=== PATIENT | male | born 1960 | race Caucasian/White ===

== ENCOUNTER → 2016-09-08 | Outpatient (CLI) | payer BC ==
--- NOTE | 2016-09-08 17:09 | XR ---
Left shoulder HISTORY: Left shoulder pain 3 views of the left shoulder No comparisons Bone mineralization, joint spaces and alignment are maintained. Left lung apex as visualized is edgardo l. Acromioclavicular joint arthropathy is noted. IMPRESSION: Acromioclavicular joint arthropathy, consider shoulder MRI.
== END | disposition home or self-care (01) ==
LOC: RADXRMAIN 15:30
PROVIDERS: ATTEND Physician Assistant
DX: M12.812 Other specific arthropathies, not elsewhere classified, left shoulder (principal)

== ENCOUNTER 2017-11-01 10:26 | Emergency (ER) | payer BC ==
[2017-11-01 10:45] VITALS: PULSE 89; RESP 18; TEMP 98.8
[2017-11-01] MEDS ORDERED: APIXABAN 5 MG TAB PO STA (11:28)
--- NOTE | 2017-11-01 11:36 | ED ---
General Adult HPI - General Chief complaint: Extremity Injury, Lower Stated complaint: DVT sent over from US Time Seen by Provider: 11/01/17 11:00 Source: patient, RN notes reviewed, old records reviewed Mode of arrival: ambulatory Limitations: no limitations - History of Present Illness Initial comments: This 37-year-old male the ER for evaluation. Patient states he has regular every pain. Respiratory tenderness and swelling. He for cirrhosis lung lugo days ago. By family doctor for outpatient ultrasound. Patient states he was referred to our care in emergency room from outpatient ultrasound she denies injury, no travel history, no recent surgeries - Related Data Home Medications Medication Instructions Recorded Confirmed Wylie 1 tab PO DAILY 11/01/17 11/01/17 Cinnamon Bark [Cinnamon] 500 mg PO DAILY 11/01/17 11/01/17 Curcumin 1 tab PO DAILY 11/01/17 11/01/17 Garcinia Cambogia 1 tab PO DAILY 11/01/17 11/01/17 Thistle [place] 1 tab PO DAILY 11/01/17 11/01/17 Thyroid,Pork [[place] Thyroid] 90 mg PO DAILY 11/01/17 11/01/17 Previous Rx's Medication Instructions Recorded Apixaban [Eliquis] 5 mg PO BID #60 tablet 11/01/17 Apixaban [Eliquis] 10 mg PO BID #28 tab 11/01/17 Allergies Allergy/AdvReac Type Severity Reaction Status Date / Time No Known Allergies Allergy Verified 11/01/17 11:24 Review of Systems ROS Statement: Those systems with pertinent positive or pertinent negative responses have been documented in the HPI. ROS Other: All systems not noted in ROS Statement are negative. Past Medical History Past Medical History: Thyroid Disorder History of Any Multi-Drug Resistant Organisms: None Reported Past Surgical History: Orthopedic Surgery Additional Past Surgical History / Comment(s): Sinus surgery Past Psychological History: No Psychological Hx Reported Smoking Status: Current every day smoker Past Alcohol Use History: Occasional Past Drug Use History: None Reported General Exam Limitations: no limitations General appearance: alert, in no apparent distress Head exam: Present: atraumatic, normocephalic, normal inspection Eye exam: Present: normal appearance, PERRL, EOMI. Absent: scleral icterus, conjunctival injection, periorbital swelling ENT exam: Present: normal exam, mucous membranes moist Neck exam: Present: normal inspection. Absent: tenderness, meningismus, lymphadenopathy Respiratory exam: Present: normal lung sounds bilaterally. Absent: respiratory distress, wheezes, rales, rhonchi, stridor Cardiovascular Exam: Present: regular rate, normal rhythm, normal heart sounds. Absent: systolic murmur, diastolic murmur, rubs, gallop, clicks GI/Abdominal exam: Present: soft, normal bowel sounds. Absent: distended, tenderness, guarding, rebound, rigid Extremities exam: Present: normal inspection, full ROM, normal capillary refill , other (Right lower extremity tenderness). Absent: tenderness, pedal edema, joint swelling, calf tenderness Back exam: Present: normal inspection Neurological exam: Present: alert, oriented X3, CN II-XII intact Psychiatric exam: Present: normal affect, normal mood Skin exam: Present: warm, dry, intact, normal color. Absent: rash Course Vital Signs 11/01/17 10:41 Temperature 98.8 F Pulse Rate 89 Respiratory 18 Rate Blood Pressure 167/100 O2 Sat by Pulse 99 Oximetry Medical Decision Making - Medical Decision Making 3 formality ER for evaluation of right lower Shorty pain, positive DVT on ultrasound. Patient will be anticoagulated discharged home - Radiology Data Radiology results: report reviewed (outpatient ultrasound positive DVT) Disposition Clinical Impression: Right leg DVT Disposition: HOME SELF-CARE Condition: Good Instructions: Deep Venous Thrombosis (ED) Prescriptions: Apixaban [Eliquis] 10 mg PO BID #28 tab Apixaban [Eliquis] 5 mg PO BID #60 tablet Referrals: Shailesh Marroquin MD [Primary Care Provider] - 1-2 days
[2017-11-01 12:01] VITALS: BP 145/101
== END 2017-11-01 12:03 | disposition home or self-care (01) ==
LOC: EC 10:26
DX: I82.401 Acute embolism and thrombosis of unspecified deep veins of right lower extremity (principal); E03.9 Hypothyroidism, unspecified; F17.200 Nicotine dependence, unspecified, uncomplicated; Z79.899 Other long term (current) drug therapy
CPT/HCPCS: 99283

== ENCOUNTER → 2017-11-01 | Outpatient (CLI) | payer BC ==
--- NOTE | 2017-11-01 10:33 | US ---
EXAMINATION TYPE: US venous doppler duplex LE RT DATE OF EXAM: 11/01/2017 10:20 AM COMPARISON: NONE CLINICAL HISTORY: R60.0 Edema lower extremity right. SIDE PERFORMED: Right TECHNIQUE: The lower extremity deep venous system is examined utilizing real time linear array sonog gabriel with graded compression, doppler sonography and color-flow sonography. VESSELS IMAGED: External Iliac Vein (EIV) Common Femoral Vein Deep Femoral Vein Greater Saphenous Vein * Femoral Vein Popliteal Vein Small Saphenous Vein * Proximal Calf Veins (* superficial vessels) Right Leg: ++Positive for DVT from the upper femoral leg to the proximal calf veins. IMPRESSION: Occlusive acute right lower extremity deep venous thrombosis from the upper femoral vein extending into the proximal calf veins. Preliminary results called to Calli at office at time of e xam by the etl application developer. Patient taken to the emergency room at the office's request.
== END | disposition home or self-care (01) ==
LOC: RADUSWWP 09:29
PROVIDERS: ATTEND Family Medicine
DX: I82.411 Acute embolism and thrombosis of right femoral vein (principal)

== ENCOUNTER → 2018-04-29 | Outpatient (CLI) | payer BC ==
--- NOTE | 2018-04-29 11:38 | US ---
EXAMINATION TYPE: US venous doppler duplex LE RT DATE OF EXAM: 04/29/2018 7:26 AM COMPARISON: CLINICAL HISTORY: I82.401 ACUTE EMBOLISM AND THROMBOSIS. Hx of DVT in October. Still on blood thinners . No pain, swelling or redness. SIDE PERFORMED: Right TECHNIQUE: The lower extremity deep venous system is examined utilizing real time linear array sonog gabriel with graded compression, doppler sonography and color-flow sonography. VESSELS IMAGED: External Iliac Vein (EIV) Common Femoral Vein Deep Femoral Vein Greater Saphenous Vein * Femoral Vein Popliteal Vein Small Saphenous Vein * Proximal Calf Veins (* superficial vessels) Right Leg: Negative for DVT IMPRESSION: 1. Right lower extremity ultrasound negative for deep venous thrombosis.
== END | disposition home or self-care (01) ==
LOC: RADUSWWP 06:49
PROVIDERS: ATTEND Family Medicine
DX: I82.401 Acute embolism and thrombosis of unspecified deep veins of right lower extremity (principal)

== ENCOUNTER 2018-08-03 09:58 | Day surgery (SDC) | payer BC ==
[~2018-08-03 09:58] MED LIST: DEXAMETHASONE SOD PHOSPHATE 10 MG/ML 1 ML VIAL IV ONE; HYDROmorphone 0.5 MG/0.5 ML SYRINGE IVP PRN; LACTATED RINGERS 1,000 ML IV SCH; LIDOCAINE 1% 20 ML VIAL (10MG/ML) FOR IV START INTRADERMA PRN; ONDANSETRON 4 MG/2 ML VIAL IVP ONE; SCOPOLAMINE 1.5MG/72HR PATCH TRANSDERM ONE
--- NOTE | 2018-08-03 10:08 | P.GSHP ---
History of Present Illness H&P Date: 08/03/18 CHIEF COMPLAINT: Colon screen HISTORY OF PRESENT ILLNESS: The patient is a 58-year-old male who presents for colon screen. Lower endoscopy was offered for further evaluation and management. PAST MEDICAL HISTORY: Please see list. PAST SURGICAL HISTORY: Please see list. MEDICATIONS: Please see list. ALLERGIES: Please see list. SOCIAL HISTORY: No illicit drug use FAMILY HISTORY: No reports of Crohn disease or ulcerative colitis. REVIEW OF ORGAN SYSTEMS: CONSTITUTIONAL: No reports of fevers or chills. PHYSICAL EXAM: VITAL SIGNS: Stable GENERAL: Well-developed pleasant in no acute distress. HEENT: No scleral icterus. Extraocular movements grossly intact. Moist buccal mucosa. NECK: Supple without lymphadenopathy. CHEST: Unlabored respirations. Equal bilateral excursions. CARDIOVASCULAR: Regular rate and rhythm. Distal 2+ pulses. ABDOMEN: Soft, nontender, nondistended. MUSCULOSKELETAL: No clubbing, cyanosis, or edema. ASSESSMENT: 1. Colon screen. PLAN: 1. Recommend proceeding with a lower endoscopy Past Medical History Past Medical History: GERD/Reflux, Thyroid Disorder History of Any Multi-Drug Resistant Organisms: None Reported Past Surgical History: Orthopedic Surgery Additional Past Surgical History / Comment(s): Sinus surgery. BILATERAL ROTATOR CUFFS Additional Past Anesthesia/Blood Transfusion Reaction / Comment(s): BECOMES AGGRESSIVE. Past Psychological History: No Psychological Hx Reported Smoking Status: Former smoker Past Alcohol Use History: Occasional Additional Past Alcohol Use History / Comment(s): 2-3 PACKS FOR WEEK, 45 YEARS Past Drug Use History: None Reported Medications and Allergies Home Medications Medication Instructions Recorded Confirmed Type Thyroid,Pork [[place] Thyroid] 90 mg PO QAM 11/01/17 11/01/17 History Allergies Allergy/AdvReac Type Severity Reaction Status Date / Time No Known Allergies Allergy Verified 08/01/18 14:41
[2018-08-03 10:31] VITALS: TEMP 98.3
[2018-08-03] MEDS ORDERED: hydrALAZINE HCL 20 MG/ML 1 ML VIAL IV ONE (10:33)
[2018-08-03] MEDS ORDERED: LIDOCAINE 1% INJ 10MG/ML (20 ML MDV) ONE (10:47)
[2018-08-03] MEDS ORDERED: PROPOFOL 10 MG/ML 20 ML VIAL IV ONE (10:47)
--- NOTE | 2018-08-03 11:08 | P.PCN ---
Date of Procedure: 08/03/18 Description of Procedure: PREOPERATIVE DIAGNOSIS: Colonoscopy screening, initial POSTOPERATIVE DIAGNOSIS: Colonoscopy screening, initial OPERATION: Colonoscopy to the ileocecal valve and appendiceal orifice. SURGEON: Rahel Manning MD. ANESTHESIA: MAC. INDICATIONS: The patient is a 58-year-old male who presents for his first colonoscopy screening. No family history of colon cancer colon polyps. Benefits and risks were described and informed consent was obtained. DESCRIPTION OF PROCEDURE: The patient had undergone Gatorade, MiraLAX and Dulcolax prep. He had been brought into the operating room and laid in the left lateral decubitus position. After adequate intravenous sedation, the rectum was examined with 2% lidocaine jelly. No external hemorrhoids were encountered. The rectal tone was within normal limits. The prostate was unremarkable. No lesions were palpated in the rectal vault. An Olympus colonoscope was advanced until the ileocecal valve and appendiceal orifice were clearly viewed. The prep was excellent with clear visualization of the mucosal folds. The scope was removed with visualization of each mucosal fold. No scattered diverticulosis was encountered. No colonic polyps were found. No evidence of focal colitis was found. Retroflexion of the scope demonstrated no internal hemorrhoids without active bleeding or inflammation. The colon was desufflated. The patient had tolerated the procedure well. Withdrawal time was over 6 minutes. FINDINGS: No internal hemorrhoids No external prolapsed hemorrhoids. No arteriovenous malformations. No adenomatous polyps. No focal colitis. RECOMMENDATIONS: Lower endoscopy in 2027. Plan - Discharge Summary Discharge Rx Participant: No New Discharge Prescriptions: No Action Thyroid,Pork [[place] Thyroid] 90 mg PO QAM Discharge Medication List Thyroid,Pork [[place] Thyroid] 90 mg PO QAM 11/01/17 [History] Follow up Appointment(s)/Referral(s): Rahel Manning MD [STAFF PHYSICIAN] - As Needed Patient Instructions/Handouts: *Surgery [facility] - (Anesthesia) Endoscopy Discharge Instructions, Colonoscopy (DC) Activity/Diet/Wound Care/Special Instructions: Repeat colonoscopy 2027 Discharge Disposition: HOME SELF-CARE
[2018-08-03 11:10] VITALS: BP 143/94; PULSE 71; RESP 18
== END 2018-08-03 11:35 | disposition home or self-care (01) ==
LOC: ORWHC2ENDO 09:58
PROVIDERS: ATTEND Surgery Plastic and Reconstructive Surgery
DX: Z12.11 Encounter for screening for malignant neoplasm of colon (principal); E07.9 Disorder of thyroid, unspecified; F17.210 Nicotine dependence, cigarettes, uncomplicated; K21.9 Gastro-esophageal reflux disease without esophagitis; Z79.899 Other long term (current) drug therapy
CPT/HCPCS: 45378; J0360; J2001; J2704